=== PATIENT | male | born 1980 | race Caucasian/White ===

== ENCOUNTER 2016-11-01 10:31 | Emergency (ER) | payer OTHER ==
[~2016-11-01] VITALS: Ht 180.3 cm; Wt 83.0 kg
== END 2016-11-01 10:58 | disposition home or self-care (01) ==
LOC: ED 10:31
DX: Z00.8 Encounter for other general examination (principal)

== ENCOUNTER 2020-07-06 20:50 | Emergency (ER) | payer OTHER ==
[~2020-07-06] VITALS: Ht 180.3 cm; Wt 83.0 kg
--- OUTSIDE RECORDS SUMMARY | 2020-07-06 20:54 | XMS ---
PreManage Notification: [facility] [employer] [employer] Events No recent Security Events currently on file CRITERIA MET - Group Notification CARE PROVIDERS There are no care providers on record at this time. [facility] has no Care Guidelines for this patient. [facility] VISIT COUNT (12 MO.) 1 KIRIT Christopher TOTAL 1 NOTE: Visits indicate total known visits. ED/C VISIT TRACKING (12 MO.) 07/06/2020 20:51 [facility] OR TYPE: Emergency COMPLAINT: - [facility] INPATIENT VISIT TRACKING (12 MO.) No inpatient visits to display in this time frame [email or web address]
[2020-07-06] MEDS ORDERED: SULFAMETHOXAZO1 EAC1 PO (21:14)
[2020-07-06] MEDS ORDERED: DOXYCYCLINE HY100 MG PO (22:56)
== END 2020-07-06 23:26 | disposition home or self-care (01) ==
LOC: ED 20:50
DX: N48.29 Other inflammatory disorders of penis (principal); F17.200 Nicotine dependence, unspecified, uncomplicated; Z79.899 Other long term (current) drug therapy; Z88.8 Allergy status to other drugs, medicaments and biological substances
CPT/HCPCS: 99282